=== PATIENT | female | born 1975 | race Caucasian/White ===

== ENCOUNTER 2020-01-31 14:51 | Emergency (ER) | payer OTHER, SELFPAY ==
[2020-01-31 14:55] VITALS: BP 136/77; PULSE 87; RESP 20; TEMP 36.7; O2SAT 100
--- NOTE | 2020-01-31 14:58 | ED.EAR ---
HPI - Ear Problem General Chief complaint: Ear Stated complaint: right ear pain/pressure/burning Time Seen by Provider: 01/31/20 15:00 Source: patient and RN notes reviewed Mode of arrival: ambulatory Limitations: no limitations History of Present Illness HPI Narrative: 45-year-old female presents with concern for right ear pain, rhinorrhea, nasal congestion. Reports history of ear infections. Denies any intervention for her symptoms. She also reports a right-sided lower mouth tooth ache. MD Complaint: ear pain Related Data Allergies Allergy/AdvReac Type Severity Reaction Status Date / Time No Known Allergies Allergy Verified 01/31/20 15:05 Review of Systems Review of Systems: Narrative: CONSTITUTIONAL: Denies malaise, chills, sweats, or fever. EYES: Denies visual changes, redness, or discharge. ENT: Reports rhinorrhea, congestion, right ear pain. Denies sinus pain, sore throat. She reports right lower tooth ache CARDIOVASCULAR: Denies chest pain, palpitations, or edema. RESPIRATORY: Denies cough or dyspnea. GASTROINTESTINAL: Denies abdominal pain, nausea, vomiting, diarrhea SKIN: Denies rash or itching. MUSCULOSKELETAL: Denies myalgia. NEUROLOGIC: Denies headache. All systems reviewed & are unremarkable except as noted in HPI and below PMFSH Comments At time of signature, agree with nursing past medical, surgical, social and family history. There is no relevant family history pertinent to the presenting complaint Exam Narrative: Exam Narrative: GENERAL: Well-appearing, well-nourished, and in no acute distress. HEAD: Normocephalic EYES: PERRLA, conjunctivae clear ENT: Nares clear, turbinates erythematous, clear discharge. Mucous membranes moist. Left TM pearly amezcua with dull light reflex, right TM erythematous; no tragal tenderness. Oropharynx not erythematous without lesions. Tonsils not enlarged and without exudate, no drooling, no hoarseness, no trismus, uvula midline. NECK: Supple. No lymphadenopathy CHEST: Clear to auscultation, breath sounds equal. No wheezing, rhonchi, rales, or stridor. No respiratory distress, speaks in full sentences. HEART: Regular rate and rhythm. No murmur heard. SKIN: Warm, dry, no rash. NEURO: Alert and oriented x3. PSYCH: Normal mood and affect Course Course Emergency Course: Patient is aware of diagnosis, understands and agrees to treatment plan. Anticipatory guidance given. Patient agrees to follow-up as directed and is aware of reasons to seek care at the emergency department. Portions of this record may have been created with voice recognition software Vital Signs Vital signs: Vital Signs Temperature 98.1 F 01/31/20 14:55 Pulse Rate 87 01/31/20 14:55 Respiratory Rate 20 01/31/20 14:55 Blood Pressure 136/77 01/31/20 14:55 Pulse Oximetry 100 01/31/20 14:55 Temperature 98.1 F 01/31/20 15:05 Pulse Rate 87 01/31/20 15:05 Respiratory Rate 20 01/31/20 15:05 Blood Pressure 136/77 01/31/20 15:05 Pulse Oximetry 100 01/31/20 15:05 Reviewed. Medical Decision Making MDM Narrative Medical decision making narrative: Differential diagnosis considered: Jackson virus, strep pharyngitis, allergic rhinitis, upper respiratory tract infection, sinusitis, rhinosinusitis, nasopharyngitis. viral pharyngitis, otitis media, otitis externa, pneumonia, bronchitis, viral cough syndrome, viral syndrome, and influenza. Exam findings show no acute concerns or changes; patient is non-toxic appearing and is in no distress. Patient is appropriate for outpatient treatment and follow-up. Vital Signs Vital Signs: Vital Signs Temperature 98.1 F 01/31/20 14:55 Pulse Rate 87 01/31/20 14:55 Respiratory Rate 20 01/31/20 14:55 Blood Pressure 136/77 01/31/20 14:55 Pulse Oximetry 100 01/31/20 14:55 Temperature 98.1 F 01/31/20 15:05 Pulse Rate 87 01/31/20 15:05 Respiratory Rate 20 01/31/20 15:05 Blood Pressure 136/77 01/31/20 15:05 Pulse Oximetry 10
[2020-01-31 15:05] VITALS: BP 136/77; PULSE 87; RESP 20; TEMP 36.7; O2SAT 100
== END 2020-01-31 15:15 | disposition home or self-care (01) ==
PROVIDERS: Emergency Provider Nurse Practitioner
DX: K08.89 Other specified disorders of teeth and supporting structures (principal); H66.001 Acute suppurative otitis media without spontaneous rupture of ear drum, right ear
CPT/HCPCS: 99213; G0463

== ENCOUNTER 2022-03-01 10:01 | Emergency (ER) | payer OTHER, SELFPAY ==
[2022-03-01 10:36] VITALS: BP 111/74; PULSE 85; RESP 20; TEMP 36.7; O2SAT 98
--- NOTE | 2022-03-01 12:10 | ED.URI ---
HPI - URI/Sore Throat General Chief Complaint: Upper Respiratory Infection Stated Complaint: Cough/Chest Congestion Time Seen by Provider: 03/01/22 12:18 Source: patient and RN notes reviewed Mode of arrival: ambulatory Limitations: no limitations History of Present Illness HPI Narrative: 47-year-old female with history of smoking presents with concern for 5 day history of cough, shortness of breath, today she lost her voice. She reports she has had intermittent fevers. Reports she has been taking some [id number] medications without relief. MD elicited complaint: cough Related Data Allergies Allergy/AdvReac Type Severity Reaction Status Date / Time No Known Allergies Allergy Verified 03/01/22 10:43 Review of Systems Review of Systems: CONSTITUTIONAL: Reports malaise, intermittent fever. EYES: Denies visual changes, redness, or discharge. ENT: Reports rhinorrhea, congestion. Denies sinus pain, otalgia and sore throat. Reports hoarse voice CARDIOVASCULAR: Denies chest pain, palpitations, or edema. RESPIRATORY: Reports cough, episodic dyspnea. GASTROINTESTINAL: Denies abdominal pain, nausea, vomiting, diarrhea SKIN: Denies rash or itching. MUSCULOSKELETAL: Reports myalgia. NEUROLOGIC: Denies headache. All systems reviewed & are unremarkable except as noted in HPI and below PMFSH Comments At time of signature, agree with nursing past medical, surgical, social and family history. There is no relevant family history pertinent to the presenting complaint Exam Narrative: GENERAL: Well-appearing, well-nourished, and in no acute distress. HEAD: Normocephalic EYES: PERRLA, conjunctivae clear ENT: Nares clear, turbinates edematous and erythematous, clear discharge. Mucous membranes moist. TM pearly amezcua with dull light reflex bilaterally; no tragal tenderness. Oropharynx not erythematous without lesions. Tonsils not enlarged and without exudate, no drooling, no trismus, uvula midline. Hoarse voice NECK: Supple. No lymphadenopathy CHEST: Clear to auscultation, breath sounds equal. No wheezing, rhonchi, rales, or stridor. No respiratory distress, speaks in full sentences. Cough noted HEART: Regular rate and rhythm. No murmur heard. SKIN: Warm, dry, no rash. NEURO: Alert and oriented x3. PSYCH: Normal mood and affect Course Course Emergency Course: Patient is aware of diagnosis, understands and agrees to treatment plan. Anticipatory guidance given. Patient agrees to follow-up as directed and is aware of reasons to seek care at the emergency department. Portions of this record may have been created with voice recognition software Level of Care: Express Care Visit Vital Signs Vital signs: Vital Signs Temperature 98.1 F 03/01/22 10:36 Pulse Rate 85 03/01/22 10:36 Respiratory Rate 20 03/01/22 10:36 Blood Pressure 111/74 03/01/22 10:36 Pulse Oximetry 98 03/01/22 10:36 Oxygen Delivery Room Air 03/01/22 10:36 Temperature 98.1 F 03/01/22 10:36 Pulse Rate 85 03/01/22 10:36 Respiratory Rate 20 03/01/22 10:36 Blood Pressure 111/74 03/01/22 10:36 Pulse Oximetry 98 03/01/22 10:36 Oxygen Delivery Room Air 03/01/22 10:36 Reviewed. MDM - URI/Sore Throat MDM Narrative Medical decision making narrative: Differential diagnosis considered: Jackson virus, strep pharyngitis, allergic rhinitis, upper respiratory tract infection, sinusitis, rhinosinusitis, nasopharyngitis. viral pharyngitis, otitis media, otitis externa, pneumonia, bronchitis, viral cough syndrome, viral syndrome, and influenza. Exam findings show no acute concerns or changes; patient is non-toxic appearing and is in no distress. Patient is appropriate for outpatient treatment and follow-up. Lab Data Attestation: I reviewed the patient's lab results. Labs: Influenza A Screen Negative Reference Range: Negative Influenza B Screen Negative
== END 2022-03-01 12:18 | disposition home or self-care (01) ==
PROVIDERS: Emergency Provider Nurse Practitioner; PCP Nurse Practitioner Family
DX: J40 Bronchitis, not specified as acute or chronic (principal); Z87.891 Personal history of nicotine dependence
CPT/HCPCS: 87804; 99213; G0463